=== PATIENT | female | born 1965 | race Two or more races ===

== ENCOUNTER 2017-12-10 09:16 | Outpatient (CLI) | payer OTHER ==
[~2017-12-10 09:16] MED LIST: CIPRO500 MG PO; FLAGYL500MG PO; INTESTINEX680 MG PO; ZANTAC150 MG PO; [UNRECOGNIZED DRUG - OTHER]
== END 2017-12-10 09:33 | disposition home or self-care (01) ==
LOC: LAB 09:16
DX: D64.89 Other specified anemias (principal); N39.0 Urinary tract infection, site not specified; E03.8 Other specified hypothyroidism; R73.9 Hyperglycemia, unspecified; E78.89 Other lipoprotein metabolism disorders; R19.09 Other intra-abdominal and pelvic swelling, mass and lump; E55.9 Vitamin D deficiency, unspecified; E72.4 Disorders of ornithine metabolism; N95.1 Menopausal and female climacteric states

== ENCOUNTER → 2018-03-15 10:41 | Outpatient (CLI) | payer OTHER | END | disposition home or self-care (01) | LOC: LAB 10:41 | DX: I10 Essential (primary) hypertension (principal); M54.5 Low back pain; Z01.810 Encounter for preprocedural cardiovascular examination; A03.9 Shigellosis, unspecified; E78.9 Disorder of lipoprotein metabolism, unspecified; F41.9 Anxiety disorder, unspecified; N39.0 Urinary tract infection, site not specified ==

== ENCOUNTER 2018-05-13 08:55 | Outpatient (CLI) | payer OTHER | END 2018-05-13 09:28 | disposition home or self-care (01) | LOC: EDBD 08:55 → SONOGRAMA 08:55 → MAMO-SONO 09:15 → SONOGRAMA 09:28 | DX: E04.1 Nontoxic single thyroid nodule (principal) ==

== ENCOUNTER 2018-05-13 09:49 | Outpatient (CLI) | payer OTHER | END 2018-05-13 09:53 | disposition home or self-care (01) | LOC: LAB 09:49 | DX: D50.8 Other iron deficiency anemias (principal); N39.0 Urinary tract infection, site not specified; E11.42 Type 2 diabetes mellitus with diabetic polyneuropathy; E78.2 Mixed hyperlipidemia; K76.0 Fatty (change of) liver, not elsewhere classified; E03.8 Other specified hypothyroidism; E55.9 Vitamin D deficiency, unspecified; N95.1 Menopausal and female climacteric states ==

== ENCOUNTER 2018-08-29 10:29 | Outpatient (CLI) | payer OTHER | END 2018-08-29 17:01 | disposition home or self-care (01) | LOC: RAD 10:29 | DX: K21.9 Gastro-esophageal reflux disease without esophagitis (principal); R13.19 Other dysphagia ==

== ENCOUNTER 2019-02-17 09:02 | Outpatient (CLI) | payer OTHER | END 2019-02-17 09:14 | disposition home or self-care (01) | LOC: LAB 09:02 | DX: R97.8 Other abnormal tumor markers (principal); C54.1 Malignant neoplasm of endometrium ==

== ENCOUNTER → 2020-06-28 08:05 | Outpatient (CLI) | payer OTHER | END | disposition home or self-care (01) | LOC: LAB 08:05 | PROVIDERS: ATTEND Internal Medicine | DX: E03.8 Other specified hypothyroidism (principal); E78.49 Other hyperlipidemia; E11.65 Type 2 diabetes mellitus with hyperglycemia ==

== ENCOUNTER 2022-04-03 10:37 | Outpatient (CLI) | payer OTHER | END 2022-04-03 10:53 | disposition home or self-care (01) | LOC: LAB 10:37 | PROVIDERS: ATTEND Specialist | DX: D50.8 Other iron deficiency anemias (principal); N39.0 Urinary tract infection, site not specified; E11.42 Type 2 diabetes mellitus with diabetic polyneuropathy; E78.2 Mixed hyperlipidemia; K76.0 Fatty (change of) liver, not elsewhere classified; E03.8 Other specified hypothyroidism ==